=== PATIENT | female | born 1970 | race Caucasian/White ===

== ENCOUNTER 2022-06-18 06:56 | Outpatient (CLI) | payer OTHER, SELFPAY | END 2022-06-18 06:57 | disposition home or self-care (01) | PROVIDERS: PCP Family Medicine; Visit Provider Family Medicine | DX: M54.16 Radiculopathy, lumbar region (principal); M51.36 Other intervertebral disc degeneration, lumbar region | CPT/HCPCS: 64483; J1100; Q9966 ==

== ENCOUNTER 2023-02-22 06:56 | Outpatient (CLI) | payer OTHER, SELFPAY | END 2023-02-22 06:57 | disposition home or self-care (01) | PROVIDERS: PCP Family Medicine; Visit Provider Family Medicine | DX: M54.16 Radiculopathy, lumbar region (principal); M51.36 Other intervertebral disc degeneration, lumbar region | CPT/HCPCS: 64483; J1100; Q9966 ==

== ENCOUNTER 2023-08-19 06:46 | Outpatient (CLI) | payer BC, SELFPAY | END 2023-08-19 06:47 | disposition home or self-care (01) | LOC: INJ CL 06:47 | PROVIDERS: PCP Family Medicine; Visit Provider Family Medicine | DX: M54.16 Radiculopathy, lumbar region (principal); M51.36 Other intervertebral disc degeneration, lumbar region | CPT/HCPCS: 64483; J1100; Q9966 ==

== ENCOUNTER 2023-12-09 07:37 | Outpatient (CLI) | payer BC, SELFPAY | END 2023-12-09 07:38 | disposition home or self-care (01) | LOC: INJ CL 07:37 | PROVIDERS: PCP Family Medicine; Visit Provider Family Medicine | DX: M54.16 Radiculopathy, lumbar region (principal); M51.36 Other intervertebral disc degeneration, lumbar region | CPT/HCPCS: 64483; J1100; Q9966 ==

== ENCOUNTER 2025-02-22 06:45 | Outpatient (CLI) | payer BC, SELFPAY | END 2025-02-22 06:46 | disposition home or self-care (01) | LOC: INJ CL 06:46 | PROVIDERS: PCP Family Medicine; Visit Provider Family Medicine | DX: M54.16 Radiculopathy, lumbar region (principal); M51.369 Other intervertebral disc degeneration, lumbar region without mention of lumbar back pain or lower extremity pain | CPT/HCPCS: 64483; Q9966 ==